=== PATIENT | female | born 1990 ===

== ENCOUNTER 2018-10-25 10:55 | Emergency (ER) | payer OTHER ==
[~2018-10-25] VITALS: Ht 157.5 cm; Wt 80.7 kg
[2018-10-25] MEDS ORDERED: ATABEX DHA 200200 MG (11:11)
== END 2018-10-25 15:12 | disposition home or self-care (01) ==
LOC: ER 10:55
DX: O26.892 Other specified pregnancy related conditions, second trimester (principal); S30.0XXA Contusion of lower back and pelvis, initial encounter; W18.39XA Other fall on same level, initial encounter; Y93.89 Activity, other specified; Y92.098 Other place in other non-institutional residence as the place of occurrence of the external cause; Y99.8 Other external cause status; Z34.02 Encounter for supervision of normal first pregnancy, second trimester

== ENCOUNTER 2018-12-16 10:58 | Outpatient (CLI) | payer OTHER ==
[~2018-12-16 10:58] MED LIST: ATABEX DHA 200200 MG
== END 2018-12-16 11:29 | disposition home or self-care (01) ==
LOC: NUCLEAR 10:58
DX: M79.604 Pain in right leg (principal)

== ENCOUNTER 2019-03-02 05:33 | Inpatient (IN) | payer OTHER ==
[~2019-03-02] VITALS: Ht 157.5 cm; Wt 89.8 kg
[2019-03-02] MEDS ORDERED: PRENATAL TABLE1 EAC1 PO (06:10)
== END 2019-03-04 12:42 | disposition home or self-care (01) | DRG 807 ==
LOC: OB/GYN 05:33 → LDR 05:33 → OB/GYN 16:15
PROVIDERS: ADMIT Obstetrics & Gynecology
PROC: 10E0XZZ Delivery of Products of Conception, External Approach (ICD-10-PCS; principal; 2019-03-02)
PROC: 10907ZC Drainage of Amniotic Fluid, Therapeutic from Products of Conception, Via Natural or Artificial Opening (ICD-10-PCS; 2019-03-02)
PROC: 3E033VJ Introduction of Other Hormone into Peripheral Vein, Percutaneous Approach (ICD-10-PCS; 2019-03-02)
PROC: 4A1HXCZ Monitoring of Products of Conception, Cardiac Rate, External Approach (ICD-10-PCS; 2019-03-02)
DX: O80 Encounter for full-term uncomplicated delivery (principal); Z37.0 Single live birth; Z3A.38 38 weeks gestation of pregnancy